=== PATIENT | male | born 1950 | race Caucasian/White ===

== ENCOUNTER 2021-09-05 07:33 | Outpatient (CLI) | payer MEDICARE, OTHER, SELFPAY ==
--- NOTE | 2021-09-06 13:24 | WPDSLEEPSTUD ---
Sleep Study Date of Study: 09/05/21 <Vandana Davenport DO - Last Filed: 09/06/21 16:23> Ordering Provider: Gilbert Quan APRN <Vandana Davenport DO - Last Filed: 09/06/21 16:23> Interpreting Physician: Vandana Davenport DO <Vandana Davenport DO - Last Filed: 09/06/21 16:23> Sleep Study Type: Split Polysomnogram <Vandana Davenport DO - Last Filed: 09/06/21 16:23> Height: 1.73 m <Vandana Davenport DO - Last Filed: 09/06/21 16:23> Weight: 113.398 kg <Vandana Davenport DO - Last Filed: 09/06/21 16:23> Body Mass Index: 38.0 <Vandana Davenport DO - Last Filed: 09/06/21 16:23> Neck Circumference (inches): 19 <Vandana Davenport DO - Last Filed: 09/06/21 16:23> [place]: 6 <Vandana Davenport DO - Last Filed: 09/06/21 16:23> Reason for Sleep Study Patient has known JAE and is currently on CPAP 18 cm H2O. The patient has unrefreshing sleep and daytime hypersomnia. <Vandana Davenport DO - Last Filed: 09/06/21 16:23> Sleep History The patient is a 71-year-old male with hypertension, peripheral vascular disease, hyperlipidemia, gout, abdominal aortic aneurysm, bradycardia and JAE on CPAP that had a split study ordered by the pulmonology group due to unrefreshing sleep despite being compliant with PAP therapy. The patient is currently retired. He denies awakening from sleep short of breath. He denies awakening at night with heartburn, belching or cough. He frequently snores loud enough that others complain. He denies having trouble sleeping when he has a cold. He denies waking up gasping for air throughout the night. Denies having breathing problems at night observed by others. He denies sweating excessively at night. He denies heart palpitations throughout the night. He occasionally falls asleep during the day but never while driving. He denies sleep paralysis and cataplexy. He rarely experiences vivid dreamlike scenes upon awakening or falling asleep. He rarely has nightmares. He occasionally has thoughts racing through his mind. He denies feeling sad, depressed or anxious. He denies noticing parts of his body jerk. He denies kicking throughout the night. He denies experiencing crawling and aching feelings in his legs as well as leg pain during the night. He denies grinding his teeth during sleep awakening with jaw pain in the morning. He denies being bothered by pain during the day and being awakened by pain during the night. He denies waking up feeling stiff in the morning with sore and achy muscles. The patient goes to bed at 10:00 p.m. on both weekdays and weekends. It takes him 30 minutes to fall asleep. He wakes up once at most throughout the night to use the restroom. He can fall back asleep within 5 minutes. He wakes up between 4 and 5:00 a.m. on both weekdays and weekends. He usually gets 6 hours of sleep per night. He will stay in bed for 10 minutes after waking up in the morning. He currently lives with his . He does not consume any caffeinated beverages within 2 hours of bedtime. He does not engage in physical exercise before bedtime. He will watch television before falling asleep. He will take naps in the afternoon or the evening and they are refreshing. He currently smokes 1/2 ppd of cigarettes. He drinks 2 cups of caffeinated beverage per day. He drinks 6 alcoholic beverages per week. He denies recreational drug use. <Vandana Davenport DO - Last Filed: 09/06/21 16:23> FORMERLY [facility] Past Medical History Medical History: Medical History (Updated 09/06/21 @ 16:18 by Vandana Davenport DO) AAA (abdominal aortic aneurysm) Sees Dr. Moncada Bradycardia Gout HTN (hypertension) Hypercholesteremia Peripheral vascular disease PTSD (post-traumatic stress disorder) <Vandana Davenport DO - Last Filed: 09/06/21 16:23> Surgical History Surgical History: Surgical History (Reviewed 09/06/21 @ 13:32 by Vandana
[2021-09-06 15:19] VITALS: BMI 38.0
== END 2021-09-06 05:35 | disposition home or self-care (01) ==
LOC: ANHCSM 07:34
PROVIDERS: Visit Provider Nurse Practitioner Family
DX: G47.33 Obstructive sleep apnea (adult) (pediatric) (principal); Z99.89 Dependence on other enabling machines and devices; R00.1 Bradycardia, unspecified; G47.61 Periodic limb movement disorder
CPT/HCPCS: 95811